=== PATIENT | male | born 1970 | race Caucasian/White ===

== ENCOUNTER 2022-05-24 11:33 | Inpatient (IN) | payer BC ==
[~2022-05-24] VITALS: Ht 170.2 cm; Wt 100.4 kg
[2022-05-24] VITALS (11 sets, daily range): BP systolic 102–182; BP diastolic 61–122
[~2022-05-24 11:33] MED LIST: aspirin 81mg tab.chew ONE; heparin 10,000 units/1 ML INJ ONE; heparin, porcine-25,000 units/D5-250ml premix IV ONE; nitroGLYCERIN 0.4mg SUBLingual tab SL ONE; normal saline 1000ML IV soln ONE
[2022-05-24] MEDS ORDERED: iohexol 350MG/ML 100ml bottle IV ONE ×3 (11:48→13:19)
[2022-05-24] MEDS ORDERED: fentaNYL/PF 50MCG/1 ML 2ML syringe ONE (11:48)
[2022-05-24] MEDS ORDERED: midazolam 1 mg/ML 2ml injection ONE ×3 (11:48→13:50)
[2022-05-24] MEDS ORDERED: LIDOcaine 1% 30ml preserv. free vial ONE (11:48)
[2022-05-24] MEDS ORDERED: heparin 1,000unit/ml 10ml vial 10 ML ONE (11:48)
[2022-05-24] MEDS ORDERED: aspirin 81mg tab.chew PO ONE (11:50)
[2022-05-24] MEDS ORDERED: nitroGLYCERIN 0.4mg SUBLingual tab SL PRN ×2 (11:50→14:50)
--- NOTE | 2022-05-24 11:54 | NUR ---
[facility] STARTED AND VERIFIED DOSE/RATE/MEDICATION VIA 2 PERSON IDENTIFIER WITH RN MARYCARMEN AT 1000 UNITS/HR PER DR GARSIA ORDER.
[2022-05-24 11:55] LABS: BASOPHILS # (AUTO) 0.1 X10'3 (0-0.2); EOSINOPHILS # (AUTO) 0.2 X10'3 (0-0.9); WHITE BLOOD COUNT 14.5 X10'3 (4.5-11.0)
[2022-05-24] MEDS ORDERED: heparin 10,000 units/1 ML INJ IV PRN (11:55)
[2022-05-24] MEDS ORDERED: heparin 25,000 UNIT/250ml bag 250 ML IV PRN (11:55)
--- NOTE | 2022-05-24 11:56 | NUR ---
PATIENT TO [employer] LEAD AT THIS TIME, BESIDE REPORT GIVEN TO SANJU MEDEL. Addendum: 05/24/22 at [address] ADY JUAREZ
[2022-05-24 11:57] LABS: BASOPHILS % (AUTO) 0.7 % (0-1); EOSINOPHILS % (AUTO) 1.2 % (0-6); HEMATOCRIT 48.9 % (42.0-52.0); HEMOGLOBIN 16.6 g/dl (14.0-17.9); LYMPHOCYTES # (AUTO) 3.2 X10'3 (1.1-4.8); LYMPHOCYTES % (AUTO) 22.1 % (21-51); MEAN CORPUSCULAR HEMOGLOBIN 31.3 PG (27.0-31.0); MEAN CORPUSCULAR HGB CONC 33.9 g/dL (33.0-36.5); MEAN CORPUSCULAR VOLUME 92.4 FL (78-98); MEAN PLATELET VOLUME 9.4 FL (7.4-10.4); MONOCYTES # (AUTO) 0.9 X10'3 (0-0.9); MONOCYTES % (AUTO) 6.4 % (2-12); NEUTROPHILS # (AUTO) 10.1 X10'3 (1.8-7.7); NEUTROPHILS % (AUTO) 69.6 % (42-75); RED BLOOD COUNT 5.29 X10'6 (4.70-6.10); RED CELL DISTRIBUTION WIDTH 13.9 % (11.5-14.5)
[2022-05-24] MEDS ORDERED: tirofiban 12.5mg in NS 250mL 250 ML IV ONE (12:20)
[2022-05-24 12:21] LABS: ALANINE AMINOTRANSFERASE 74 U/L (12-78); ALBUMIN 3.9 G/DL (3.4-5.0); ALKALINE PHOSPHATASE 137 IU/L (46-116); ANION GAP 10 (8-16); ASPARTATE AMINO TRANSFERASE 143 U/L (10-37); BILIRUBIN,TOTAL 0.4 MG/DL (0.1-1.0); BLOOD UREA NITROGEN 18 MG/DL (7-18); CALCIUM 9.4 MG/DL (8.5-10.1); CHLORIDE 99 MMOL/L (99-107); CREATININE 1.29 MG/DL (0.60-1.10); GLUCOSE 149 MG/DL (70-104); MAGNESIUM 2.2 MG/DL (1.5-2.4); POTASSIUM 4.8 MMOL/L (3.5-5.1); SODIUM 135 MMOL/L (135-145); TOTAL CARBON DIOXIDE 25.9 MMOL/L (24-32); eGFR 58 ML/MIN
[2022-05-24 12:24] LABS: PLATELET COUNT 235 X10'3 (140-440)
[2022-05-24] MEDS ORDERED: ticagrelor 90mg tablet ONE ×2 (13:31→13:36)
[2022-05-24] MEDS ORDERED: LIDOcaine 1% (10mg/ml) 2ml vial ONE (13:55)
--- NOTE | 2022-05-24 14:30 | NUR ---
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
[2022-05-24] MEDS ORDERED: OXAZEpam 15mg capsule PO PRN (14:50)
[2022-05-24] MEDS ORDERED: acetaminophen 325mg tablet PO PRN ×2 (14:50)
[2022-05-24] MEDS ORDERED: morphine 10mg/ml inj. IV PRN (14:50)
[2022-05-24] MEDS ORDERED: cyclobenzaprine 10mg tablet PO PRN (14:50)
[2022-05-24] MEDS ORDERED: proCHLORperazine 10 MG/2 ml inj IV PRN (14:50)
[2022-05-24] MEDS ORDERED: HYDROcodone/acetaminophen 10/325mg tab PO PRN ×2 (14:50)
[2022-05-24] MEDS ORDERED: magnesium hydroxide 30ml (MOM) UD suspension PO PRN (14:50)
[2022-05-24] MEDS: tirofiban 12.5mg in NS 250mL IV SCH (14:55)
[2022-05-24] MEDS: morphine 4 MG/ML inj SYRINge IV PRN ×2 (14:57→16:24)
--- NOTE | 2022-05-24 14:57 | NUR ---
Pt c/o of dull chest pain 08/11 Vss med with MS for pain IV Son and girlfriend at bedside Voided without difficulty
[2022-05-24] MEDS ORDERED: sodium chloride 0.45% 1,000 ML IV ONE (15:00)
--- NOTE | 2022-05-24 15:00 | NUR ---
Problems reprioritized. Patient report given, questions answered & plan of care reviewed with Gamal BILLS.
--- NOTE | 2022-05-24 15:00 | NUR ---
Patient in room CICU 2010. I have received report from Cleo and had the opportunity to ask questions and assume patient care. Pt got stents x2 to LAD and 1 to Diagonal per report. He came out on Heparin at 1000units/hr and Aggratat running at 22.9ml/hr (not the rate ordered in the chart per his weight buti t was decided to leave it at this rate by Cleo RN). He had CP 4/10 a bit ago and got 4mg Morphine, improved to 2/10 currently. He is oozing a lot from his sheath site but no hemotoma, he is on 2 blood thinner drips and got Brilinta load so that's to be expected. Pulse palpable but weak in RLE. Was told his sheath would be left in over night. No orders present in terms of management from it or report from the MD who placed it. Pt is alert and oriented. In overall good spirits but is a bit depressed about possibly not returning to full physical function given his EF is decreased, told him sometimes this can improve over time and it'll be important to continue taking all cardiac medications as ordered to reduce the workload of his heart.
--- NOTE | 2022-05-24 16:01 | NUR ---
Morphine wasn't due but pt still having CP 08/11 so 1 Nitrostat SL tab was given. In about ten minutes his BP dropped to 70s/40s. He felt cool and clammy. Denied CP but was nauseated (no emesis). Placed in [place] position and given 250ml bolus of fluid, BP improved to 110/50. Will not give Nitrostat again. Addendum: 05/24/22 at 1651 by Eris Salguero RN EKG was done showing no new issues. placed in chart.
[2022-05-24] MEDS ORDERED: carVEDilol 3.125mg tablet PO ONE (17:10)
[2022-05-24] MEDS ORDERED: nitroGLYCERIN-Tridil 50MG/D5W 250 ML IV SCH (17:15)
--- NOTE | 2022-05-24 18:30 | NUR ---
Problems reprioritized. Patient report given, questions answered & plan of care reviewed with
--- NOTE | 2022-05-24 18:30 | NUR ---
Patient in room CICU 2010. I have received report from Gamal BILLS and had the opportunity to ask questions and assume patient care. 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
--- NOTE | 2022-05-24 19:44 | NUR ---
Patient having self limiting bursts of SVT, BP maintained within limits. Dr. Huggins notified. Expected result, no change to treatment plan at this time. Orders received to D/C heparin and aggrastat at 0800 05/25, angio seal at 10am by [facility] programmer team.
[2022-05-24] MEDS: carVEDilol 3.125mg tablet PO SCH (19:55)
[2022-05-24] MEDS: ticagrelor 90mg tablet PO SCH (20:00)
[2022-05-24 20:32] LABS: BASOPHILS # (AUTO) 0.1 X10'3 (0-0.2); BASOPHILS % (AUTO) 0.5 % (0-1); EOSINOPHILS # (AUTO) 0.1 X10'3 (0-0.9); EOSINOPHILS % (AUTO) 0.3 % (0-6); HEMATOCRIT 38.4 % (42.0-52.0); HEMOGLOBIN 12.9 g/dl (14.0-17.9); LYMPHOCYTES # (AUTO) 2.5 X10'3 (1.1-4.8); LYMPHOCYTES % (AUTO) 13.5 % (21-51); MEAN CORPUSCULAR HEMOGLOBIN 30.9 PG (27.0-31.0); MEAN CORPUSCULAR HGB CONC 33.5 g/dL (33.0-36.5); MEAN CORPUSCULAR VOLUME 92.2 FL (78-98); MONOCYTES # (AUTO) 1.3 X10'3 (0-0.9); NEUTROPHILS # (AUTO) 14.7 X10'3 (1.8-7.7); NEUTROPHILS % (AUTO) 78.7 % (42-75); PLATELET COUNT 267 X10'3 (140-440); RED BLOOD COUNT 4.16 X10'6 (4.70-6.10); RED CELL DISTRIBUTION WIDTH 13.3 % (11.5-14.5); WHITE BLOOD COUNT 18.7 X10'3 (4.5-11.0)
[2022-05-24 20:39] LABS: MAGNESIUM 1.8 MG/DL (1.5-2.4); POTASSIUM 3.7 MMOL/L (3.5-5.1)
[2022-05-24] MEDS: docusate sod 100mg capsule PO SCH (22:09)
[2022-05-25] VITALS (27 sets, daily range): BP systolic 72–118; BP diastolic 44–77
--- NOTE | 2022-05-25 00:01 | NUR ---
Problems reprioritized. Patient report given, questions answered & plan of care reviewed with Gamal BILLS.
--- NOTE | 2022-05-25 00:01 | NUR ---
Patient in room [facility] 2010. I have received report from Priya and had the opportunity to ask questions and assume patient care. Addendum: 05/25/22 at 0108 by Eris Salguero RN pt does have a little more ST elevation in lead II on the monitor than he did on day shift but he's also a bit more tachycardic. He states 0 chest pain. No other s/sx of cardiac event occuring at this time.
[2022-05-25 02:24] LABS: BASOPHILS # (AUTO) 0.1 X10'3 (0-0.2); BASOPHILS % (AUTO) 0.7 % (0-1); EOSINOPHILS # (AUTO) 0.1 X10'3 (0-0.9); EOSINOPHILS % (AUTO) 0.7 % (0-6); HEMATOCRIT 34.8 % (42.0-52.0); HEMOGLOBIN 11.8 g/dl (14.0-17.9); LYMPHOCYTES # (AUTO) 3.6 X10'3 (1.1-4.8); MEAN CORPUSCULAR HEMOGLOBIN 31.2 PG (27.0-31.0); MEAN CORPUSCULAR HGB CONC 33.8 g/dL (33.0-36.5); MEAN CORPUSCULAR VOLUME 92.2 FL (78-98); MEAN PLATELET VOLUME 9.2 FL (7.4-10.4); MONOCYTES # (AUTO) 1.3 X10'3 (0-0.9); MONOCYTES % (AUTO) 7.4 % (2-12); NEUTROPHILS # (AUTO) 12.9 X10'3 (1.8-7.7); NEUTROPHILS % (AUTO) 71.2 % (42-75); PLATELET COUNT 258 X10'3 (140-440); RED BLOOD COUNT 3.77 X10'6 (4.70-6.10); RED CELL DISTRIBUTION WIDTH 13.6 % (11.5-14.5); WHITE BLOOD COUNT 18.1 X10'3 (4.5-11.0)
[2022-05-25 02:32] LABS: ALBUMIN 2.7 G/DL (3.4-5.0); ANION GAP 9 (8-16); BLOOD UREA NITROGEN 15 MG/DL (7-18); BUN/CREATININE RATIO 13.4 (5.4-32.0); CALCIUM 7.1 MG/DL (8.5-10.1); CHLORIDE 101 MMOL/L (99-107); CREATININE 1.12 MG/DL (0.60-1.10); GLUCOSE 138 MG/DL (70-104); POTASSIUM 3.5 MMOL/L (3.5-5.1); SODIUM 131 MMOL/L (135-145); TOTAL CARBON DIOXIDE 21.3 MMOL/L (24-32); eGFR 68 ML/MIN
[2022-05-25] MEDS: morphine 4 MG/ML inj SYRINge IV PRN (03:40)
--- NOTE | 2022-05-25 06:09 | NUR ---
pt had about a 20 beat run of VTACH. pressure maintained during it. pt was alert and oriented upon entering the room. Denies CP, Denies nausea, SOB, not cool or clammy. notified his K is only 3.5 this AM so he ordered 40 meq IV potassium.
[2022-05-25] MEDS ORDERED: potassium Cl 10 mEq/100mL bag IV ONE ×4 (06:10→09:10)
[2022-05-25] MEDS: tirofiban 12.5mg in NS 250mL IV SCH (06:12)
[2022-05-25] MEDS ORDERED: Potassium Cl 40 MEQ in sodium chloride 0.45% 500 ML IV ONE (06:20)
[2022-05-25] MEDS: ticagrelor 90mg tablet PO SCH ×2 (08:00→20:14)
[2022-05-25 08:52] LABS: MAGNESIUM 1.7 MG/DL (1.5-2.4)
[2022-05-25] MEDS: aspirin 81mg tab.chew PO SCH (09:54)
[2022-05-25] MEDS: atorvastatin 20mg tablet PO SCH (09:54)
[2022-05-25] MEDS: carVEDilol 3.125mg tablet PO SCH ×2 (09:54→19:05)
[2022-05-25] MEDS: lisinopril 5mg tablet PO SCH (09:55)
[2022-05-25] MEDS: docusate sod 100mg capsule PO SCH ×2 (09:55→20:14)
[2022-05-25] MEDS ORDERED: LIDOcaine 1% 30ml preserv. free vial ONE (09:57)
[2022-05-25] MEDS ORDERED: normal saline 500ml IV soln 500 ML IV ONE (14:05)
[2022-05-25 18:21] LABS: HEMATOCRIT 30.4 % (42.0-52.0); HEMOGLOBIN 9.9 g/dl (14.0-17.9); MEAN CORPUSCULAR HGB CONC 32.5 g/dL (33.0-36.5); MEAN CORPUSCULAR VOLUME 95.5 FL (78-98); MEAN PLATELET VOLUME 8.8 FL (7.4-10.4); PLATELET COUNT 254 X10'3 (140-440); RED BLOOD COUNT 3.19 X10'6 (4.70-6.10); RED CELL DISTRIBUTION WIDTH 13.7 % (11.5-14.5); WHITE BLOOD COUNT 21.6 X10'3 (4.5-11.0)
--- NOTE | 2022-05-25 18:30 | NUR ---
Report received from dayswyft nurse. Assumed care of patient at this time. Per report, pt bp has been low with decreased UO. pt to receive x1 unit PRBCs. Will continue to monitor
[2022-05-25] MEDS: tamsulosin 0.4mg capsule PO SCH (20:14)
[2022-05-26] VITALS (26 sets, daily range): BP systolic 83–117; BP diastolic 6–79
[2022-05-26 05:33] LABS: BASOPHILS % (AUTO) 0.3 % (0-1); EOSINOPHILS % (AUTO) 0.1 % (0-6); HEMATOCRIT 27.9 % (42.0-52.0); HEMOGLOBIN 9.4 g/dl (14.0-17.9); LYMPHOCYTES # (AUTO) 2.1 X10'3 (1.1-4.8); MEAN CORPUSCULAR HEMOGLOBIN 30.4 PG (27.0-31.0); MEAN CORPUSCULAR HGB CONC 33.6 g/dL (33.0-36.5); MEAN CORPUSCULAR VOLUME 90.6 FL (78-98); MEAN PLATELET VOLUME 8.6 FL (7.4-10.4); MONOCYTES # (AUTO) 1.5 X10'3 (0-0.9); MONOCYTES % (AUTO) 9.6 % (2-12); NEUTROPHILS # (AUTO) 12.3 X10'3 (1.8-7.7); PLATELET COUNT 175 X10'3 (140-440); RED BLOOD COUNT 3.08 X10'6 (4.70-6.10)
[2022-05-26 05:51] LABS: ALANINE AMINOTRANSFERASE 101 U/L (12-78); ALBUMIN 2.6 G/DL (3.4-5.0); ALBUMIN/GLOBULIN RATIO 0.9 (1.1-1.5); ALKALINE PHOSPHATASE 48 IU/L (46-116); ANION GAP 8 (8-16); ASPARTATE AMINO TRANSFERASE 239 U/L (10-37); BILIRUBIN,TOTAL 0.9 MG/DL (0.1-1.0); BLOOD UREA NITROGEN 30 MG/DL (7-18); BUN/CREATININE RATIO 18.8 (5.4-32.0); CALCIUM 7.6 MG/DL (8.5-10.1); CHLORIDE 99 MMOL/L (99-107); CHOL/HDL RATIO 3.8 (0.00-4.99); CHOLESTEROL 110 MG/DL (0-200); GLUCOSE 145 MG/DL (70-104); HDL CHOLESTEROL 29 MG/DL (35-60); LDL CHOLESTEROL 66 MG/DL (50-100); MAGNESIUM 1.8 MG/DL (1.5-2.4); PHOSPHORUS 3.3 MG/DL (2.3-4.5); POTASSIUM 4.1 MMOL/L (3.5-5.1); SODIUM 130 MMOL/L (135-145); TOTAL PROTEIN 5.6 G/DL (6.4-8.2); TRIGLYCERIDES 124 MG/DL (20-135); eGFR 45 ML/MIN
[2022-05-26 06:08] LABS: HEMOGLOBIN A1C 6.3 % (4.5-6.2)
[2022-05-26] MEDS: lisinopril 5mg tablet PO SCH (08:00)
[2022-05-26] MEDS: carVEDilol 3.125mg tablet PO SCH ×2 (08:00→20:00)
[2022-05-26] MEDS: pantoprazole 40mg Tablet.DR PO SCH (08:22)
[2022-05-26] MEDS: aspirin 81mg tab.chew PO SCH (08:22)
[2022-05-26] MEDS: atorvastatin 20mg tablet PO SCH (08:22)
[2022-05-26] MEDS: docusate sod 100mg capsule PO SCH ×2 (08:22→20:24)
[2022-05-26] MEDS: ticagrelor 90mg tablet PO SCH (08:23)
[2022-05-26] MEDS ORDERED: NO HOME MEDS (10:56)
--- NOTE | 2022-05-26 14:08 | NUR ---
Dr. Huggins called for findings on the echo which shows a possible blood clot. Dr. Huggins referred treatment to sample paster. Dr. Mathews called.
[2022-05-26] MEDS: tamsulosin 0.4mg capsule PO SCH (20:24)
[2022-05-26] MEDS: clopidogrel 75mg tablet PO SCH (20:24)
[2022-05-26] MEDS: apixaban 5mg tablet PO SCH (20:24)
[2022-05-27] VITALS (18 sets, daily range): BP systolic 88–116; BP diastolic 55–71
[2022-05-27 06:02] LABS: ALANINE AMINOTRANSFERASE 91 U/L (12-78); ALBUMIN 2.6 G/DL (3.4-5.0); ALBUMIN/GLOBULIN RATIO 0.7 (1.1-1.5); ALKALINE PHOSPHATASE 52 IU/L (46-116); ANION GAP 8 (8-16); ASPARTATE AMINO TRANSFERASE 147 U/L (10-37); BILIRUBIN,TOTAL 0.9 MG/DL (0.1-1.0); BLOOD UREA NITROGEN 16 MG/DL (7-18); BUN/CREATININE RATIO 13.3 (5.4-32.0); CALCIUM 7.6 MG/DL (8.5-10.1); CHLORIDE 100 MMOL/L (99-107); GLUCOSE 119 MG/DL (70-104); PHOSPHORUS 2.3 MG/DL (2.3-4.5); POTASSIUM 4.1 MMOL/L (3.5-5.1); SODIUM 131 MMOL/L (135-145); TOTAL CARBON DIOXIDE 23.2 MMOL/L (24-32); TOTAL PROTEIN 6.2 G/DL (6.4-8.2); eGFR 63 ML/MIN
[2022-05-27 06:13] LABS: BASOPHILS # (AUTO) 0.1 X10'3 (0-0.2); BASOPHILS % (AUTO) 0.5 % (0-1); EOSINOPHILS # (AUTO) 0.1 X10'3 (0-0.9); MEAN CORPUSCULAR HEMOGLOBIN 30.6 PG (27.0-31.0); MEAN CORPUSCULAR HGB CONC 34.3 g/dL (33.0-36.5); MEAN CORPUSCULAR VOLUME 89.2 FL (78-98); MEAN PLATELET VOLUME 8.6 FL (7.4-10.4); MONOCYTES # (AUTO) 1.1 X10'3 (0-0.9); NEUTROPHILS # (AUTO) 7.9 X10'3 (1.8-7.7); NEUTROPHILS % (AUTO) 70.5 % (42-75); PLATELET COUNT 144 X10'3 (140-440); RED BLOOD COUNT 3.25 X10'6 (4.70-6.10); RED CELL DISTRIBUTION WIDTH 15.1 % (11.5-14.5); WHITE BLOOD COUNT 11.2 X10'3 (4.5-11.0)
[2022-05-27] MEDS: aspirin 81mg tab.chew PO SCH (07:17)
[2022-05-27] MEDS: clopidogrel 75mg tablet PO SCH (07:18)
[2022-05-27] MEDS: docusate sod 100mg capsule PO SCH ×2 (07:18→20:00)
[2022-05-27] MEDS: lisinopril 5mg tablet PO SCH (07:18)
[2022-05-27] MEDS: atorvastatin 20mg tablet PO SCH (07:18)
[2022-05-27] MEDS: apixaban 5mg tablet PO SCH ×2 (07:19→20:01)
[2022-05-27] MEDS: pantoprazole 40mg Tablet.DR PO SCH (07:19)
[2022-05-27] MEDS: carVEDilol 3.125mg tablet PO SCH ×2 (07:19→20:00)
--- NOTE | 2022-05-27 16:30 | NUR ---
Educated pt on post procedure activity, diet, etc. Pt asked questions regarding recovery time. states that he realizes now how serious his situation is and is reflecting on his past lifestyle. Pt states he will be making changes in his lifestyle. Pt states that he is normally really active and after seeing his groin bruising, understands more how this is a life changing opportunity he has been given. I stressed to pt how important it is to be patient with himself during his recovery. And follow all of his physician's directions regarding activity, diet, medications etc. Pt states he understands and that is what his plan is.
[2022-05-27] MEDS: tamsulosin 0.4mg capsule PO SCH (20:01)
[2022-05-28 02:00] VITALS: BP 100/57
--- NOTE | 2022-05-28 06:24 | NUR ---
Problems reprioritized. Patient report given, questions answered & plan of care reviewed with Karri BILLS.
[2022-05-28 06:46] LABS: BASOPHILS # (AUTO) 0.1 X10'3 (0-0.2); BASOPHILS % (AUTO) 0.6 % (0-1); EOSINOPHILS # (AUTO) 0.2 X10'3 (0-0.9); EOSINOPHILS % (AUTO) 2.3 % (0-6); HEMATOCRIT 30.2 % (42.0-52.0); HEMOGLOBIN 10.1 g/dl (14.0-17.9); LYMPHOCYTES # (AUTO) 2.1 X10'3 (1.1-4.8); LYMPHOCYTES % (AUTO) 21.2 % (21-51); MEAN CORPUSCULAR HEMOGLOBIN 30.3 PG (27.0-31.0); MEAN CORPUSCULAR HGB CONC 33.5 g/dL (33.0-36.5); MEAN CORPUSCULAR VOLUME 90.6 FL (78-98); MEAN PLATELET VOLUME 8.9 FL (7.4-10.4); MONOCYTES # (AUTO) 1.1 X10'3 (0-0.9); MONOCYTES % (AUTO) 10.7 % (2-12); NEUTROPHILS # (AUTO) 6.4 X10'3 (1.8-7.7); NEUTROPHILS % (AUTO) 65.2 % (42-75); PLATELET COUNT 171 X10'3 (140-440); RED BLOOD COUNT 3.33 X10'6 (4.70-6.10); RED CELL DISTRIBUTION WIDTH 14.6 % (11.5-14.5); WHITE BLOOD COUNT 9.8 X10'3 (4.5-11.0)
[2022-05-28 06:55] LABS: ALANINE AMINOTRANSFERASE 73 U/L (12-78); ALBUMIN 2.5 G/DL (3.4-5.0); ALBUMIN/GLOBULIN RATIO 0.7 (1.1-1.5); ALKALINE PHOSPHATASE 53 IU/L (46-116); ANION GAP 9 (8-16); ASPARTATE AMINO TRANSFERASE 77 U/L (10-37); BILIRUBIN,TOTAL 0.6 MG/DL (0.1-1.0); BLOOD UREA NITROGEN 18 MG/DL (7-18); BUN/CREATININE RATIO 14.1 (5.4-32.0); CALCIUM 7.9 MG/DL (8.5-10.1); CHLORIDE 100 MMOL/L (99-107); CREATININE 1.28 MG/DL (0.60-1.10); GLUCOSE 103 MG/DL (70-104); MAGNESIUM 2.4 MG/DL (1.5-2.4); POTASSIUM 3.7 MMOL/L (3.5-5.1); SODIUM 133 MMOL/L (135-145); TOTAL CARBON DIOXIDE 24.1 MMOL/L (24-32); TOTAL PROTEIN 6.2 G/DL (6.4-8.2); eGFR 59 ML/MIN
--- NOTE | 2022-05-28 07:11 | NUR ---
Patient in room PCU 3026. I have received report from Frida and had the opportunity to ask questions and assume patient care.
[2022-05-28 07:16] VITALS: BP 105/71
[2022-05-28] MEDS: pantoprazole 40mg Tablet.DR PO SCH (07:27)
[2022-05-28] MEDS: atorvastatin 20mg tablet PO SCH (07:29)
[2022-05-28] MEDS: lisinopril 5mg tablet PO SCH (07:29)
[2022-05-28] MEDS: clopidogrel 75mg tablet PO SCH (07:29)
[2022-05-28] MEDS: carVEDilol 3.125mg tablet PO SCH (07:29)
[2022-05-28] MEDS: aspirin 81mg tab.chew PO SCH (07:29)
[2022-05-28] MEDS: docusate sod 100mg capsule PO SCH (07:29)
[2022-05-28] MEDS: apixaban 5mg tablet PO SCH (07:29)
[2022-05-28 11:45] VITALS: BP 100/60
[2022-05-28] MEDS ORDERED: CLOP75TA34 PO (14:02)
[2022-05-28] MEDS ORDERED: NITR0.4T51 SL (14:02)
[2022-05-28] MEDS ORDERED: ASPI81TA53 PO (14:02)
[2022-05-28] MEDS ORDERED: ATOR40TA71 PO (14:02)
[2022-05-28] MEDS ORDERED: APIX5TAB3 PO (14:02)
[2022-05-28] MEDS ORDERED: COR3.125T PO (14:02)
[2022-05-28] MEDS ORDERED: LISI5TAB22 PO (14:02)
--- NOTE | 2022-05-28 15:00 | NUR ---
PAGER ID: [phone] MESSAGE: [place] [id number], Pt has DC orders but pharmacy needs Dr forms to send 3 day supply home of Plavix. Your orders also ask for Eliquis and pharmacy may not have that med. Do they need Eliquis for DC? Karri [phone]
--- NOTE | 2022-05-28 15:19 | NUR ---
Pt has DC orders in however we may not be able to send the pt home with the Eliquis since it is not on the pharmacy order sheet. I addressed the issue with Dr. Hernandez and he said the pt should be good to go home without that med or meds if we can not get them from pharmacy. Dr. Hernandez said the pt should be good until they can get their prescription from their preferred pharmacy tomorrow.
--- NOTE | 2022-05-28 19:13 | NUR ---
Pt was dc'd as per providers orders. IV and tele were unhooked. All documents printed out and signed. Education was given to pt and his . Pt was told about needed home meds for his cath stents and that they were needed for DC. Pt was wheeled to lobby by myself and left hospital in personal vehicle. Pt will call and set up follow up appointment with their grants manager within the week.
== END 2022-05-28 17:53 | disposition home or self-care (01) | DRG 247 ==
LOC: ER 11:33 → CICU 2S 13:45 → PCU 3S 05-27 15:25
PROVIDERS: ADMIT Internal Medicine Cardiovascular Disease; ATTEND Internal Medicine Cardiovascular Disease
PROC: 4A023N7 Measurement of Cardiac Sampling and Pressure, Left Heart, Percutaneous Approach (ICD-10-PCS; principal; 2022-05-24)
PROC: 027035Z Dilation of Coronary Artery, One Artery with Two Drug-eluting Intraluminal Devices, Percutaneous Approach (ICD-10-PCS; 2022-05-24)
PROC: B2111ZZ Fluoroscopy of Multiple Coronary Arteries using Low Osmolar Contrast (ICD-10-PCS; 2022-05-24)
PROC: B2151ZZ Fluoroscopy of Left Heart using Low Osmolar Contrast (ICD-10-PCS; 2022-05-24)
PROC: 30233N1 Transfusion of Nonautologous Red Blood Cells into Peripheral Vein, Percutaneous Approach (ICD-10-PCS; 2022-05-25)
DX: I21.09 ST elevation (STEMI) myocardial infarction involving other coronary artery of anterior wall (principal); D62 Acute posthemorrhagic anemia; E87.1 Hypo-osmolality and hyponatremia; N17.9 Acute kidney failure, unspecified; F12.90 Cannabis use, unspecified, uncomplicated; D72.829 Elevated white blood cell count, unspecified; I25.5 Ischemic cardiomyopathy; R73.03 Prediabetes; I95.9 Hypotension, unspecified; I25.10 Atherosclerotic heart disease of native coronary artery without angina pectoris; Z82.49 Family history of ischemic heart disease and other diseases of the circulatory system; Z87.891 Personal history of nicotine dependence; I25.2 Old myocardial infarction
CPT/HCPCS: 93306; 93458; 99285; C9601; C9606; 36415; 36430; 71045; 74176; 80048; 80053; 80061; 83036; 83735; 83880; 84100; 84132; 84484; 85025; 85027; 85730; 86885; 86900; 86901; 86920; 87081; 93005; 99152; 99153; A4615; A6258; A6449; C1725; C1751; C1769; C1874; C1894; G0378; J0780; J1644; J2250; J2270; J3010; J3246; J3480; J3490; J7030; J7040; P9016; Q9967